=== PATIENT | female | born 1965 | race Caucasian/White ===

== ENCOUNTER 2017-04-30 19:12 | Emergency (ER) | payer SELFPAY ==
--- NOTE | 2017-04-30 19:25 | ED Physician Documentation ---
Sore Throat/Dental Pain - HISTORIAN Historian: patient - HPI Chief Complaint: Sore Throat Onset: other (10 days) Associated Symptoms: fever (103), chills Further Comments: yes (One week history of body aches, sore throat, headache, fever, chills, diarrhea with some mild blood.) - ROS CONST: no problems CVS/RESP: none - PAST HX [facility]: [facility] Other History: none Immunizations: referred to PCP Allergies/Adverse Reactions: Allergies Allergy/AdvReac Type Severity Reaction Status Date / Time morphine Allergy Unknown Verified 04/30/17 19:31 Home Medications: Ambulatory Orders Medication Instructions Recorded Trazodone HCl [Trazodone HCl] 200 mg PO HS 04/28/13 Bupropion HCl [Wellbutrin] 150 mg PO DAILY 04/30/17 Escitalopram Oxalate [Lexapro] 20 mg PO DAILY 04/30/17 - SOCIAL HX Smoking History: other ( e cigarette) Alcohol Use: none Drug Use: none - FAMILY HX Family History: No - VITAL SIGNS Vital Signs: Vital Signs Temp Pulse Resp BP Pulse Ox 98.0 F 84 19 138/82 97 04/30/17 20:36 04/30/17 20:36 04/30/17 20:36 04/30/17 20:36 04/30/17 20:36 - REVIEWED ASSESSMENTS Nursing Assessment Reviewed: Yes Vitals Reviewed: Yes ED Results Lab/Radiology - Lab Results Lab Results: Lab Results 04/30/17 04/30/17 19:44 19:44 WBC 13.20 K/ul H K/ul (4.00-12.00) RBC 4.21 M/ul M/ul (3.90-5.20) Hgb 14.0 g/dL g/dL (12.0-16.0) Hct 39.9 % % (34.5-46.5) MCV 94.8 fl fl (80.0-100.0) MCH 33.3 pg pg (28.0-34.0) MCHC 35.1 g/dL g/dL (30.0-36.0) RDW 13.0 % % (11.3-14.3) Plt Count 346 K/mm3 K/mm3 (130-400) Neut % (Auto) 69.8 % % (39.0-79.0) Lymph % (Auto) 21.8 % % (16.0-50.0) [place] % (Auto) 4.7 % % (0.0-11.0) Eos % (Auto) 1.3 % % (0.0-6.8) Baso % (Auto) 0.5 (0.0-1.5) Neut # (Auto) 9.2 # k/uL H # k/uL (1.4-7.7) Lymph # (Auto) 2.9 # k/uL # k/uL (0.6-4.0) [place] # (Auto) 0.6 # k/uL # k/uL (0.0-0.9) Eos # (Auto) 0.2 # k/uL # k/uL (0.0-0.6) Baso # (Auto) 0.1 # k/uL # k/uL (0.0-0.5) Reactive Lymphs % 2.0 % % (0.0-5.0) Reactive Lymphs # 0.3 # k/uL # k/uL (0.0-0.8) Sodium 139 mmol/L mmol/L (136-145) Potassium 4.0 mmol/L mmol/L (3.5-5.0) Chloride 105 mmol/L mmol/L (98-110) Carbon Dioxide 26 mmol/L mmol/L (20-32) BUN 10 mg/dL mg/dL (10-26) Creatinine 0.7 mg/dL mg/dL (0.4-1.5) Estimated Creat Clear 157 Est GFR ( Amer) > 60 (60 - ) Est GFR (Non-Af Amer) > 60 (60 - ) Glucose 99 mg/dL mg/dL (70-99) Calcium 9.6 mg/dL mg/dL (8.5-10.5) Total Bilirubin 0.3 mg/dL mg/dL (0.2-1.2) AST 16 U/L U/L (0-41) ALT 20 U/L U/L (0-45) Alkaline Phosphatase 107 U/L U/L (46-116) Total Protein 7.4 g/dL g/dL (6.0-8.5) Albumin 4.5 g/dL g/dL (3.0-5.5) - Orders Orders: ED Orders Category Date Time Status Place IV Lock 1T Care 04/30/17 19:30 Active CBC/PLATELET/DIFF Routine Lab 04/30/17 19:44 Completed CMP Routine Lab 04/30/17 19:44 Completed INFLUENZA A&B Routine Lab 04/30/17 19:31 Ordered Rapid Strep [GRP A STREP SCREEN] Routine Lab 04/30/17 Ordered URINALYSIS Routine Lab 04/30/17 20:28 Ordered 0.9 % Sodium Chloride [Normal Saline] 1,000 ml Med 04/30/17 19:30 Discontinued IV Q1H Influenza and rapid strep neg Sore throat Physical Exam - EXAM General Appearance: alert, mild distress Head/Neck: head nml inspection, trachea midline, no lymphadenopathy. No: stiff neck Mouth/Throat: lips nml, gums nml, pharyngeal erythema Ear/Nose: nml inspection Respiratory: no resp. distress, breath sounds nml. No: wheezes, rales, rhonchi CVS: reg. rate & rhythm, heart sounds nml. No: murmur Abdomen: soft, no organomegaly, no distension, tenderness (MILD DIFFUSE) Extremities: non-tender, nml ROM Skin: warm/dry, normal color Neuro/Psych: oriented x3, mood/affect nml Discharge Clincal Impression: Viral illness Referrals: Len Shepard MD [Primary Care Provider] - 2 Days Additional Instructions: Continue to drink a lot of fluids to stay hydrated. Gargle with salt water to help with sore throat. Rest and get plenty of sleep. If not better in 5 days to follow-up with your primary care provider. Home Medications: Ambulatory Orders Trazodone HCl [Trazodone HCl] 200 mg PO HS 04/28/13 Bupropion HCl [Wellbutrin] 150 mg PO DAILY 04/30/17 Escitalopram Oxalate [Lexapro] 20 mg PO DAILY 04/30/17 Condition: Stable Disposition: 01 HOME, SELF-CARE Decision to Admit: NO Date of Decison to Admit: 04/30/17 Decision Time: 20:20
[2017-04-30] MEDS: 0.9 % SODIUM CHLORIDE 1,000 ML IV ONE (19:49)
[2017-04-30 19:50] LABS: BASOPHILS % 0.5 (0.0-1.5); EOSINOPHILS % 1.3 % (0.0-6.8); MEAN CORPUSCULAR HEMOGLOBIN 33.3 pg (28.0-34.0); MEAN CORPUSCULAR VOLUME 94.8 fl (80.0-100.0); MONOCYTES % 4.7 % (0.0-11.0); NEUTROPHILS # 9.2 # k/uL (1.4-7.7)
[2017-04-30 20:03] LABS: eGFR (African) > 60; eGFR (Non-African) > 60
[2017-04-30 20:42] VITALS: BP 138/82
[2017-05-01 05:19] LABS: APPEARANCE,URINE CLEAR (CLEAR); COLOR,URINE YELLOW (YELLOW); OCCULT BLOOD,URINE NEGATIVE (NEGATIVE); UROBILINOGEN URINE 0.2 Eu (0.2-1.0)
== END 2017-04-30 20:36 | disposition home or self-care (01) ==
LOC: ED 19:12
DX: B34.9 Viral infection, unspecified (principal)
CPT/HCPCS: 80053; 85025; J7030; 81002; 87070; 87400; 87880; 96360; 99283; S1016

== ENCOUNTER 2017-06-28 14:17 | Emergency (ER) | payer SELFPAY ==
[2017-06-28] MEDS ORDERED: CloNIDine HCL 0.1 MG TABLET PO ONE (14:35)
--- NOTE | 2017-06-28 14:42 | ED Physician Documentation ---
Headache - HISTORIAN Historian: patient - HPI Stated Complaint: Headache Chief Complaint: Headache Additional Information: elevated blood pressure, nausea, diarrhea, numbness left arm Timing: abrupt New Gradual Onset: Yes Exposure To: none Severity: moderate Quality: throbbing Associated Symptoms: denies: fever, chills, sweating, sensitivity to light, vomiting, neck pain Preceding Symptoms: denies: visual disturbance Exacerbated By: denies: light, noise, movement, position Further Comments: no - ROS NEURO/PSYCH: denies: confusion, anxiety, depression, fainting EYES/ENT: denies: sore throat, difficulty swallowing, sinus pain, drainage CVS/RESP: none GI/: denies: abdominal pain, diarrhea, problems urinating, incontinence MS/SKIN/LYMPH: denies: muscle aches, back pain, rash, skin lesions, swollen glands all systems neg except as marked: Yes - PAST HX Medical History: other (anxiety, type 2 dm) Surgical History: other (c-sect, hyst) Immunizations: referred to PCP Allergies/Adverse Reactions: Allergies Allergy/AdvReac Type Severity Reaction Status Date / Time morphine Allergy Unknown Verified 06/28/17 14:37 - SOCIAL HX Smoking History: cigarettes Alcohol Use: none Drug Use: none - Family HX Family History: none - VITAL SIGNS Vital Signs: Vital Signs Temp Pulse Resp BP Pulse Ox 98.1 F 106 H 18 125/73 97 06/28/17 14:20 06/28/17 14:20 06/28/17 14:20 06/28/17 16:05 06/28/17 14:20 - REVIEWED ASSESSMENTS Nursing Assessment Reviewed: Yes Vitals Reviewed: Yes Progress - Results/Orders Results/Orders: testing ordered, recent blood work reviewed - Progress Progress: Pt. given 0.1 mg clonidine p.o., toradol 30 mg ivp, zofran 8 mg p.o. and lomotil 2.5/0/025 mg p.o. in er with improvement in symptoms. Critical Care Note - Critical Care Note Total Time (mins): 0 ED Results Lab/Radiology - Lab Results Lab Results: none ordered - Radiology Radiology Impressions: none ordered - Orders Orders: ED Orders Category Date Time Status CloNIDine HCL [Catapress] Med 06/28/17 14:35 Discontinued 0.1 mg PO NOW ONE Diphenoxylate HCl/Atropine [Lomotil] Med 06/28/17 15:28 Discontinued 1 each PO NOW ONE Ketorolac Tromethamine [Toradol] Med 06/28/17 15:28 Discontinued 60 mg IM NOW ONE Ondansetron HCl Rapdis [Zofran Odt] Med 06/28/17 15:28 Discontinued 8 mg PO NOW ONE Headache Physical Exam - EXAM General Appearance: alert, moderate distress EENT: no facial swelling, eyes nml inspection, PERRL, nml ENT, pharynx nml. No : tender temporal artery, pain over sinuses, photophobia, unequal pupils Neck: normal inspection, thyroid normal, supple Respiratory: no resp distress, chest non-tender, breath sounds normal CVS: reg. rate & rhythm, heart sounds nml Abdomen: non-tender, no organomegaly, nml bowel sounds, no distention Skin: color nml, no rash Extremitites: non-tender, normal range of motion, other (tnederness trapezius muscles) - NEURO/PSYCH Higher Functions: alert, oriented x3, nml speech, mood/affect nml. denies: abnml thought processes, abnml cognition, abnml speech Cranial: nml as tested, no evidence of acute CVA. denies: facial droop, hearing deficit Cerebellar: nml as tested Sensorimotor: motor nml, sensation nml, weakness Discharge Clincal Impression: Cephalgia Qualifiers: Headache type: tension-type Headache chronicity pattern: acute headache Intractability: intractable Qualified Code(s): G44.201 - Tension-type headache, unspecified, intractable Hypertension Qualifiers: Hypertension type: essential hypertension Qualified Code(s): I10 - Essential ( primary) hypertension Referrals: Len Shepard MD [Primary Care Provider] - 2 Days Comments: Discharged home in stable and improved condition with script for Clonidine 0.1 mg #30 1 p.o. daily Condition: Stable Disposition: 01 HOME, SELF-CARE Decision to Admit: NO Decision Time: 16:18
[2017-06-28] MEDS ORDERED: KETOROLAC TROMETHAMINE 60 MG/2 ML VIAL IM ONE (15:28)
[2017-06-28] MEDS ORDERED: DIPHENOXYLATE HCL/ATROPINE 1 EACH TABLET PO ONE (15:28)
[2017-06-28] MEDS ORDERED: ONDANSETRON HCL 4 MG TAB.RAPDIS PO ONE (15:28)
[2017-06-28 16:27] VITALS: BP 120/68
== END 2017-06-28 16:26 | disposition home or self-care (01) ==
LOC: ED 14:17
DX: G44.201 Tension-type headache, unspecified, intractable (principal); I10 Essential (primary) hypertension
CPT/HCPCS: A9270; J1885; 96372; 99283

== ENCOUNTER 2018-05-15 10:11 | Emergency (ER) | payer SELFPAY ==
[2018-05-15] MEDS ORDERED: ASPIRIN 81 MG CHEW TAB PO ONE (10:19)
[2018-05-15 10:47] LABS: BASOPHILS % 0.7 (0.0-1.5); EOSINOPHILS % 1.8 % (0.0-6.8); MEAN CORPUSCULAR HEMOGLOBIN 33.4 pg (28.0-34.0); MEAN CORPUSCULAR VOLUME 94.4 fl (80.0-100.0); MONOCYTES % 4.8 % (0.0-11.0); NEUTROPHILS # 9.3 # k/uL (1.4-7.7)
--- NOTE | 2018-05-15 10:59 | ED Physician Documentation ---
Chest Pain - HISTORIAN Historian: patient - HPI Stated Complaint: chest pain this am Chief Complaint: Chest Pain Onset: hours (5) Timing: sudden onset Duration: constant Last known Well Date: 05/15/18 Last Known Well Time: 09:00 Last known Well Code/Unknown Code: Unknown Context: rest Severity: mild Quality: pressure, burning, dull Chest Pain Radiation: back Chest Pain Signs/Symptoms: nausea Worsened By: nothing Relieved By: nothing - ROS CONST: none MS/LYMPH: none EYES/ENT: other (cough) NEURO/PSYCH: denies: headache, fainting - PAST HX SC risk factors: no pertinent history DVT/PE Risk Factors: none TAD/AAA risk factors: none Neuro deficit: none GI disease: none Lung disease: none Immunizations: UTD Allergies/Adverse Reactions: Allergies Allergy/AdvReac Type Severity Reaction Status Date / Time morphine Allergy Unknown Verified 05/15/18 12:12 - SOCIAL HX Smoking History: quit greater than 1 year Alcohol Use: none Drug Use: none - FAMILY HX Family HX: none - VITAL SIGNS Vital Signs: Vital Signs Temp Pulse Resp BP Pulse Ox 120/68 06/28/17 16:26 - REVIEWED ASSESSMENTS Nursing Assessment Reviewed: Yes Vitals Reviewed: Yes Progress - Progress Progress: 1120: Discussed results with pt and brother. She is aware of plan and she is agreeable DG 1150: improved air movement post neb . Will discharge DG ED Results Lab/Radiology - Lab Results Lab Results: Lab Results 05/15/18 10:35 WBC 12.60 K/ul H K/ul (4.00-12.00) RBC 4.42 M/ul M/ul (3.90-5.20) Hgb 14.8 g/dL g/dL (12.0-16.0) Hct 41.7 % % (34.5-46.5) MCV 94.4 fl fl (80.0-100.0) MCH 33.4 pg pg (28.0-34.0) MCHC 35.4 g/dL g/dL (30.0-36.0) RDW 12.7 % % (11.3-14.3) Plt Count 373 K/mm3 K/mm3 (130-400) Neut % (Auto) 73.5 % % (39.0-79.0) Lymph % (Auto) 17.7 % % (16.0-50.0) [place] % (Auto) 4.8 % % (0.0-11.0) Eos % (Auto) 1.8 % % (0.0-6.8) Baso % (Auto) 0.7 (0.0-1.5) Neut # (Auto) 9.3 # k/uL H # k/uL (1.4-7.7) Lymph # (Auto) 2.2 # k/uL # k/uL (0.6-4.0) [place] # (Auto) 0.6 # k/uL # k/uL (0.0-0.9) Eos # (Auto) 0.2 # k/uL # k/uL (0.0-0.6) Baso # (Auto) 0.1 # k/uL # k/uL (0.0-0.5) Reactive Lymphs % 1.4 % % (0.0-5.0) Reactive Lymphs # 0.2 # k/uL # k/uL (0.0-0.8) - Radiology Radiology Impressions: Portable chest History: Chest pain Findings: A calcified right lung granuloma is observed. Mild reticular opacity is present at the right lung base. The left lung is clear. Heart size is normal. There is no pleural effusion. Impression: Mild right basilar reticular opacity. Differential includes bronchitis, early bronchopneumonia, and atelectasis. Electronically signed on May 15, 2018 10:48:26 AM CDT by: Branden Cruz - Orders Orders: ED Orders Category Date Time Status Continuous EKG monitoring Q30M Care 05/15/18 10:19 Active Continuous Pulse Oximetry Q30M Care 05/15/18 10:[address] IV Lock 1T Care 05/15/18 10:19 Active CHEST 1VIEW [RAD] Stat Exams 05/15/18 Ordered BNP [NT-proBNP] Stat Lab 05/15/18 10:35 Received CBC/PLATELET/DIFF Routine Lab 05/15/18 10:35 Completed CMP Routine Lab 05/15/18 10:35 Received CREATINE KINASE Routine Lab 05/15/18 10:35 Received D DIMER Stat Lab 05/15/18 10:35 Received TROPONIN I (cTnI) Stat Lab 05/15/18 10:35 Received Aspirin Med 05/15/18 10:19 Discontinued 324 mg PO NOW ONE Oxygen Daily Oxygen 05/15/18 10:30 Ordered EKG WITH COMPARISON Stat Ther 05/15/18 10:19 Ordered Chest Pain Physical Exam - EXAM General Appearance: no acute distress, alert EENT: eye inspection normal, ENT inspection normal, pharynx normal, no signs of dehydration Neck: nml inspection Respiratory: no resp. distress, chest non-tender, wheezes (exp on right and left upper ) CVS: reg. rate & rhythm, no murmur Abdomen: soft, no organomegaly, normal bowel sounds, no distension Skin: warm/dry, normal color Extremities: non-tender, normal range of motion, no evidence of injury, no edema Neuro: oriented X3, CN's nml as tested, motor nml, sensation nml, mood/affect nml Discharge Clincal Impression: Pneumonia Qualifiers: Pneumonia type: due to unspecified organism Laterality: right Lung location: lower lobe of lung Qualified Code(s): J18.1 - Lobar pneumonia, unspecified organism Referrals: Len Shepard MD [Primary Care Provider] - 2 Days Comments: 1. azithromycin - Zpack as directed 2. Medrol dose pack - as directed 3. Proair 90 mcg take 2 puffs by mouth every 4 hours as needed for cough 4. Increase fluids 5. See PCP in 2- 4days 6. Return to ER for any concerns Condition: Stable Disposition: 01 HOME, SELF-CARE Decision to Admit: NO Date of Decison to Admit: 05/15/18 Decision Time: 11:50
[2018-05-15] MEDS ORDERED: IPRATROPIUM/ALBUTEROL SULFATE 3 ML AMPUL.NEB NEB ONE ×2 (11:30→11:31)
[2018-05-15 12:19] VITALS: BP 140/84
--- NOTE | 2018-05-15 16:09 | Diagnostic Imaging Report ---
SHIELA WHITESIDE [facility] [address] [facility] [address] [place], [place]. [address] Report Submission Date: May 15, 2018 10:48:26 AM CDT Patient Study Name: KIMBERLY VIERA Date: May 15, 2018 10:27:28 AM CDT Modality Type: DX Gender: F Description: CHEST : 67 Institution: [facility] Physician: SHIELA WHITESIDE Portable chest History: Chest pain Findings: A calcified right lung granuloma is observed. Mild reticular opacity is present at the right lung base. The left lung is clear. Heart size is normal. There is no pleural effusion. Impression: Mild right basilar reticular opacity. Differential includes bronchitis, early bronchopneumonia, and atelectasis. Electronically signed on May 15, 2018 10:48:26 AM CDT by: Branden LACY
[2018-05-16 08:29] LABS: APPEARANCE,URINE CLEAR (CLEAR); COLOR,URINE YELLOW (YELLOW); OCCULT BLOOD,URINE 1+ (NEGATIVE); PH URINE 5.5 (5.0 - 8.0); UROBILINOGEN URINE 0.2 Eu (0.2-1.0)
== END 2018-05-15 12:00 | disposition home or self-care (01) ==
LOC: ED 10:11
DX: J18.1 Lobar pneumonia, unspecified organism (principal)
CPT/HCPCS: 71045; 80053; 81002; 82550; 82565; 83880; 84484; 85025; 85379; 94640; 99284; S1016

== ENCOUNTER 2018-10-20 11:30 | Emergency (ER) | payer SELFPAY ==
[2018-10-20 12:57] LABS: BASOPHILS % 0.7 (0.0-1.5); EOSINOPHILS % 1.9 % (0.0-6.8); MEAN CORPUSCULAR HEMOGLOBIN 31.7 pg (28.0-34.0); MONOCYTES % 9.8 % (0.0-11.0); NEUTROPHILS # 6.8 # k/uL (1.4-7.7)
[2018-10-20] MEDS ORDERED: GUAIFENESIN/CODEINE 10 ML S/F LIQUID DOSE CUP PO ONE (13:14)
--- NOTE | 2018-10-20 13:15 | Diagnostic Imaging Report ---
BRIAN BURDICK (TITLE CAMERA OPERATOR) - ER [facility] [address] [facility].[address] [address] Report Submission Date: Oct 20, 2018 12:50:00 PM REVENUE OFFICER Patient Study Name: KIMBERLY VIERA Date: Oct 20, 2018 12:00:59 PM REVENUE OFFICER Modality Type: DX Gender: F Description: CHEST : 67 Institution: [facility] Physician: BRIAN BURDICK (TITLE CAMERA OPERATOR) - ER Examination: PA and lateral chest. History: Evaluate lung ross. COUGH X 3 WEEKS (Hx) Comparison exam: None available for direct review. Findings: PA and lateral views of the chest demonstrates a normal cardiac and mediastinal silhouette. Mild interstitial prominence. Linear fullness extending inferiorly from the right hilum. No blunting of the costophrenic margins. Right midlung granuloma. Osseous structures are appropriate for age. Impression: Right infrahilar linear infiltrate. No effusion. Electronically signed on Oct 20, 2018 12:50:00 PM REVENUE OFFICER by: Daniel LACY
[2018-10-20] MEDS ORDERED: GUAIFENESIN/CODEINE 10 ML S/F LIQUID DOSE CUP ONE (13:20)
[2018-10-20 13:25] LABS: eGFR (Non-African) > 60
--- NOTE | 2018-10-20 13:34 | ED Physician Documentation ---
Upper Respiratory Symptoms - HISTORIAN Historian: patient - HPI Stated Complaint: cough, congestion Chief Complaint: Cough/ Upper Respiratory Associated Symptoms: fever, chills, runny nose, sinus pain, sinus drainage, productive cough, shortness of breath, hurts to breathe Further Comments: yes (53 year old female patient presents with 3 week history of cough, congestion, body aches, fever and sinus pressure. Patient has not seen her PCP, denies using any OTC medications.) - ROS CONST/EYES: denies: weakness, eye redness, eye itching, other CVS/RESP: shortness of breath (related to cough) LYMPH: denies: leg swelling, rash, swollen glands, ankle swelling, other GI/: none NEURO/PSYCH: denies: fainting, dizziness, confusion, anxiety, depression, other MS/SKIN: denies: joint pain, muscle aches, rash, other - PAST HX Lung Disease: none PE Risk Factors: hypertension Allergies/Adverse Reactions: Allergies Allergy/AdvReac Type Severity Reaction Status Date / Time morphine Allergy Unknown Verified 10/20/18 12:18 Home Medications: Ambulatory Orders Medication Instructions Recorded Levofloxacin [Levaquin] 750 mg PO DAILY #7 tablet 10/20/18 - SOCIAL HX Smoking History: cigarettes - FAMILY HX Family History: denies: none - VITAL SIGNS Vital Signs: Vital Signs Temp Pulse Resp BP Pulse Ox 97.2 F L 87 20 144/81 97 10/20/18 13:49 10/20/18 13:49 10/20/18 13:49 10/20/18 13:49 10/20/18 13:49 - REVIEWED ASSESSMENTS Nursing Assessment Reviewed: Yes Vitals Reviewed: Yes Progress - Progress Progress: Reviewed lab and xray results with patient. Patient does not have prescription insurance. She is a frequent vape smoker, transitioned from tobacco cigarettes. Coupon provided for levaquin. ED Results Lab/Radiology - Lab Results Lab Results: Lab Results 10/20/18 10/20/18 10/20/18 12:48 12:47 12:47 WBC 9.60 K/ul K/ul (4.00-12.00) RBC 4.36 M/ul M/ul (3.90-5.20) Hgb 13.8 g/dL g/dL (12.0-16.0) Hct 41.8 % % (34.5-46.5) MCV 96.0 fl fl (80.0-100.0) MCH 31.7 pg pg (28.0-34.0) MCHC 33.1 g/dL g/dL (30.0-36.0) RDW 12.1 % % (11.3-14.3) Plt Count 322 K/mm3 K/mm3 (130-400) Neut % (Auto) 70.4 % % (39.0-79.0) Lymph % (Auto) 17.2 % % (16.0-50.0) [place] % (Auto) 9.8 % % (0.0-11.0) Eos % (Auto) 1.9 % % (0.0-6.8) Baso % (Auto) 0.7 (0.0-1.5) Neut # (Auto) 6.8 # k/uL # k/uL (1.4-7.7) Lymph # (Auto) 1.7 # k/uL # k/uL (0.6-4.0) [place] # (Auto) 0.9 # k/uL # k/uL (0.0-0.9) Eos # (Auto) 0.2 # k/uL # k/uL (0.0-0.6) Baso # (Auto) 0.1 # k/uL # k/uL (0.0-0.5) Sodium 141 mmol/L mmol/L (136-145) Potassium 4.2 mmol/L mmol/L (3.5-5.1) Chloride 110 mmol/L H mmol/L (98-107) Carbon Dioxide 23 mmol/L mmol/L (22-30) BUN 8 mg/dL mg/dL (7-17) Creatinine 0.70 mg/dL mg/dL (0.52-1.04) Estimated Creat Clear 154 Est GFR ( Amer) > 60 (60 - ) Est GFR (Non-Af Amer) > 60 (60 - ) Glucose 102 mg/dL mg/dL (74-106) Lactate 1.3 U/L U/L (0.7-2.1) Calcium 8.8 mg/dL mg/dL (8.4-10.2) Total Bilirubin 0.5 mg/dL mg/dL (0.2-1.3) AST 46 U/L U/L (15-46) ALT 40 U/L U/L (13-69) Alkaline Phosphatase 130 U/L H U/L (38-126) Total Protein 7.4 g/dL g/dL (6.3-8.2) Albumin 4.6 g/dL g/dL (3.5-5.0) Influenza Type A Ag Influenza Type B Ag 10/20/18 11:36 WBC RBC Hgb Hct MCV MCH MCHC RDW Plt Count Neut % (Auto) Lymph % (Auto) [place] % (Auto) Eos % (Auto) Baso % (Auto) Neut # (Auto) Lymph # (Auto) [place] # (Auto) Eos # (Auto) Baso # (Auto) Sodium Potassium Chloride Carbon Dioxide BUN Creatinine Estimated Creat Clear Est GFR ( Amer) Est GFR (Non-Af Amer) Glucose Lactate Calcium Total Bilirubin AST ALT Alkaline Phosphatase Total Protein Albumin Influenza Type A Ag Negative (NEGATIVE) Influenza Type B Ag Negative (NEGATIVE) - Radiology Radiology Impressions: Examination: PA and lateral chest. History: Evaluate lung ross. COUGH X 3 WEEKS (Hx) Comparison exam: None available for direct review. Findings: PA and lateral views of the chest demonstrates a normal cardiac and mediastinal silhouette. Mild interstitial prominence. Linear fullness extending inferiorly from the right hilum. No blunting of the costophrenic margins. Right midlung granuloma. Osseous structures are appropriate for age. Impression: Right infrahilar linear infiltrate. No effusion. Electronically signed on Oct 20, 2018 12:50:00 PM FELT HANGER by: Daniel Youngblood - Orders Orders: ED Orders Category Date Time Status CHEST 2VIEW [RAD] Stat Exams 10/20/18 11:48 Completed CBC/PLATELET/DIFF Stat Lab 10/20/18 12:47 Completed CMP Stat Lab 10/20/18 12:47 Completed INFLUENZA A&B Stat Lab 10/20/18 11:36 Completed LACTATE Stat Lab 10/20/18 12:48 Completed Codeine Phosphate/Guaifenesin [Robitussin AC] Med 10/20/18 13:14 Discontinued 10 ml PO NOW ONE Upper Respiratory Symptoms - EXAM General Appearance: mild distress EENT: eyes nml inspection, nml ENT inspection, lids & conjunct. nml, PERRL, ear nml, nose nml, pharynx nml, airway nml Respiratory: no resp. distress, no pain on inspiration, speaks full sentences, no pleuritic chest pain, other (course) Abdomen: non-tender, no organomegaly, nml bowel sounds, no distention CVS: reg rate & rhythm, heart sounds normal, equal pulses, no murmur, no gallop, PMI nml, no JVD, no friction rub, 24 Skin: color nml, no rash, warm,dry Extremities: non-tender, normal range of motion, no evidence of injury, no edema, J, [place] Neuro/Psych: oriented x3, neuro intact, mood/affect nml, CN's nml as tested Discharge Clincal Impression: CAP (community acquired pneumonia) Qualifiers: Laterality: right Lung location: middle lobe of lung Qualified Code(s): J18.1 - Lobar pneumonia, unspecified organism Prescriptions: Levofloxacin [Levaquin] 750 mg PO DAILY #7 tablet Referrals: Len Shepard MD [Primary Care Provider] - 2 Days Additional Instructions: building supplies salesperson retail your prescriptions and start them today. Cough drops as needed for cough and sore throat. Increase your fluid intake juices, hot tea, non-caffeinated beverages Vitamin C may be helpful in decreasing the length of your cold. Use a humidifier in the room where you sleep. You can also sit in a steam filled bathroom 1-2 times a day. Tylenol every 4 hours 650mg -1000mg (do not exceed 4000mg in 24 hours) as needed for fever, pain and body aches. Alternate with Ibuprofen Ibuprofen 600-800mg every 6 hours as needed for fever, pain and body aches. Stop smoking, stop using e-cigarettes, stop vaping. Follow up with primary care next week. Condition: Stable Disposition: 01 HOME, SELF-CARE Decision to Admit: NO Decision Time: 13:34
[2018-10-20 13:51] VITALS: BP 144/81
== END 2018-10-20 13:49 | disposition home or self-care (01) ==
LOC: ED 11:30
DX: J18.1 Lobar pneumonia, unspecified organism (principal); Z72.0 Tobacco use
CPT/HCPCS: 36415; 71046; 80053; 83605; 85025; 87400; 99283; 99285

== ENCOUNTER 2019-08-15 11:40 | Emergency (ER) | payer SELFPAY ==
[2019-08-15 12:05] LABS: BASOPHILS % 0.4 % (0.0-1.5)
[2019-08-15 12:06] LABS: NEUTROPHILS # 6.3 # k/uL (1.4-7.7)
--- NOTE | 2019-08-15 12:16 | ED Physician Documentation ---
General Adult - HISTORIAN Historian: patient - HPI Stated Complaint: biateral leg pain Chief Complaint: Lower Extremity Problem Additional Information: 54 year old female c/o bilateral leg pain; has not taken her lisinopril in a we ek; she is out and does not have insurance to follow up with PCP; she states that she started a new job 2 months ago and legs started aching 2 weeks ago. Onset: days ago (2 weeks ago) Timing: still present Severity: mild Modifying Factors: New job; standing - ROS CONST: no problems EYES/ENT: none CVS/RESP: none GI/: none MS/SKIN/LYMPH: none NEURO/PSYCH: denies: tingling, numbness, difficulty walking - PAST HX Past History: hypertension Surgeries/Procedures: , other (lymph nodes off breast) Immunizations: UTD Allergies/Adverse Reactions: Allergies Allergy/AdvReac Type Severity Reaction Status Date / Time morphine Allergy Unknown Verified 08/15/19 11:51 Home Medications: Ambulatory Orders Medication Instructions Recorded Lisinopril [Prinivil] 10 mg PO DAILY #30 tablet 08/15/19 Naproxen 500 mg PO BID #20 tablet 08/15/19 predniSONE [Deltasone] 40 mg PO DAILY #10 tablet 08/15/19 - SOCIAL HX Smoking History: greater than 1 pack/day Alcohol Use: none Drug Use: none - FAMILY HX Family History: No - VITAL SIGNS Vital Signs: Vital Signs Temp Pulse Resp BP Pulse Ox 98.2 F 116 H 20 166/106 97 08/15/19 11:49 08/15/19 11:49 08/15/19 11:49 08/15/19 11:49 08/15/19 11:49 - REVIEWED ASSESSMENTS Nursing Assessment Reviewed: Yes Vitals Reviewed: Yes Progress - Progress Progress: 13:00 Discussed results of labs; recommended support socks and elevating legs when at home She then stated "well I have this pain in my back and it goes down my right leg"- explained that she did not mention that earlier. She states "should I go to work tonight- I think its because I am working new job". I explained that the more she moved the better; since symptoms worsen after she is sitting for awhile. She states "I need a work excuse for tonight- I just cant go to work"-----OK ED Results Lab/Radiology - Lab Results Lab Results: Lab Results 08/15/19 12:04 WBC 10.00 K/ul K/ul (4.00-12.00) RBC 4.20 M/ul M/ul (3.90-5.20) Hgb 13.6 g/dL g/dL (11.5-16.0) Hct 40.7 % % (34.5-46.5) MCV 97.0 fl fl (80.0-100.0) MCH 32.3 pg pg (28.0-34.0) MCHC 33.3 g/dL g/dL (30.0-36.0) RDW 10.7 % L % (11.3-14.3) Plt Count 352 K/mm3 K/mm3 (130-400) Neut % (Auto) 62.8 % % (39.0-79.0) Lymph % (Auto) 26.7 % % (16.0-50.0) [place] % (Auto) 8.3 % % (0.0-11.0) Eos % (Auto) 1.8 % % (0.0-6.8) Baso % (Auto) 0.4 % % (0.0-1.5) Neut # (Auto) 6.3 # k/uL # k/uL (1.4-7.7) Lymph # (Auto) 2.7 # k/uL # k/uL (0.6-4.0) [place] # (Auto) 0.8 # k/uL # k/uL (0.0-0.9) Eos # (Auto) 0.2 # k/uL # k/uL (0.0-0.6) Baso # (Auto) 0.0 # k/uL # k/uL (0.0-0.5) - Orders Orders: ED Orders Category Date Time Status CBC/PLATELET/DIFF Routine Lab 08/15/19 12:04 Completed CMP Routine Lab 08/15/19 12:04 Received D DIMER Stat Lab 08/15/19 12:04 Received General Adult Physical Exam - PHYSICAL EXAM GENERAL APPEARANCE: no distress EENT: eye inspection normal, ENT inspection normal, pharynx normal, LEILANI NECK: normal inspection, supple RESPIRATORY: breath sounds normal CVS: heart sounds normal BACK: normal inspection SKIN: warm/dry, normal color EXTREMITIES: non-tender, normal range of motion, no evidence of injury, edema (trace) NEURO: oriented X3, CN's nml as tested, motor nml, sensation nml, mood/affect nml, cognition normal Discharge Clincal Impression: Low back pain with right-sided sciatica Prescriptions: Lisinopril [Prinivil] 10 mg PO DAILY #30 tablet Naproxen 500 mg PO BID #20 tablet predniSONE [Deltasone] 40 mg PO DAILY #10 tablet Referrals: Len Shepard MD [Primary Care Provider] - 2 Days Additional Instructions: Does not want a referral to pain at this time d/t no insurance Comments: take prednisone 40 mg daily x 5 days Naproxen 500 mg bid lisinopril refilled x 1 month--- follow up with pcp next week Use heat, icy hot, bengay, salonpas, biofreeze see pcp nick Condition: Good Disposition: 01 HOME, SELF-CARE Decision to Admit: NO Decision Time: 13:28
[2019-08-15] MEDS: LISINOPRIL 5 MG TABLET PO ONE (12:17)
[2019-08-15 12:43] LABS: eGFR (Non-African) > 60
[2019-08-15 13:24] VITALS: BP 162/74
== END 2019-08-15 13:23 | disposition home or self-care (01) ==
LOC: ED 11:40
DX: M54.41 Lumbago with sciatica, right side (principal)
CPT/HCPCS: 80053; 85025; 85379; 99283